=== PATIENT | male | born 1990 | race Caucasian/White ===

== ENCOUNTER 2024-07-29 11:42 | Inpatient (IN) | payer MEDICAID ==
[~2024-07-29] VITALS: Ht 190.5 cm; Wt 84.8 kg
[~2024-07-29 11:42] MED LIST: DEXT5TAB31 PO; LISD10CA PO
[2024-07-29] MEDS ORDERED: mag hydrox/Alum hydrox/simeth 30ml oral suspension PO PRN (13:30)
[2024-07-29] MEDS ORDERED: magnesium hydroxide 30ml (MOM) UD suspension PO PRN (13:30)
[2024-07-29] MEDS ORDERED: loperamide 2mg capsule PO PRN (13:30)
[2024-07-29] MEDS ORDERED: acetaminophen 325mg tablet PO PRN ×2 (13:30)
[2024-07-29] MEDS ORDERED: DEXT5CAP PO (13:45)
[2024-07-29] MEDS ORDERED: LISD40CA PO (13:45)
[2024-07-29] MEDS: diphenhydrAMINE 50 mg/ml inj IM ONE (15:14)
[2024-07-29] MEDS: haloperidol lactate 5mg/ml inj IM ONE (15:14)
[2024-07-29] MEDS: LORazepam 2 mg/ml vial IM ONE (15:15)
[2024-07-29 17:03] VITALS: BP 140/86; PULSE 90; RESP 16; TEMP 98.6; O2SAT 99
[2024-07-29 20:00] VITALS: RESP 16
[2024-07-30] MEDS: lisdexamfetamine dimesylate 10mg capsule PO SCH (07:16)
[2024-07-30 07:30] VITALS: BP 116/71; PULSE 61; RESP 16; TEMP 98; O2SAT 98
[2024-07-30] MEDS: NICOTINE POLACRILEX 2 MG LOZENGE BC PRN (18:10)
[2024-07-30 19:00] VITALS: RESP 18; O2SAT 96
[2024-07-30 20:00] VITALS: BP 106/60; PULSE 90; RESP 18; TEMP 98.7; O2SAT 96
[2024-07-30] MEDS: hydrOXYzine 25 MG tablet PO SCH (21:00)
[2024-07-30] MEDS: OLANZapine 5mg rapidly disint. tablet PO SCH (21:00)
[2024-07-31 07:17] VITALS: RESP 18; O2SAT 96
[2024-07-31 08:00] VITALS: BP 129/86; PULSE 94; RESP 14; TEMP 98.7; O2SAT 96
[2024-07-31] MEDS: BUPROPION HCL 150MG XL 24 HR 150 MG TAB PO SCH (08:00)
== END 2024-07-31 13:08 | disposition home or self-care (01) | DRG 758 ==
LOC: ADULT MH 13:12 → UNDOADMIN 13:26 → ADULT MH 13:26
PROVIDERS: ADMIT Psychiatry & Neurology Psychiatry; ATTEND Psychiatry & Neurology Psychiatry
PROC: GZHZZZZ Group Psychotherapy (ICD-10-PCS; principal; 2024-07-31)
DX: F90.2 Attention-deficit hyperactivity disorder, combined type (principal); R45.851 Suicidal ideations; F43.10 Post-traumatic stress disorder, unspecified; F12.10 Cannabis abuse, uncomplicated; F17.210 Nicotine dependence, cigarettes, uncomplicated; F20.9 Schizophrenia, unspecified; F84.0 Autistic disorder; Z79.899 Other long term (current) drug therapy
CPT/HCPCS: 36415; 80061; 84443; 87081; J1200; J1630; J2060

== ENCOUNTER 2024-10-20 17:18 | Emergency (ER) | payer MEDICAID ==
[~2024-10-20] VITALS: Ht 188 cm; Wt 78.7 kg
[~2024-10-20 17:18] MED LIST changes: -DEXT5TAB31 PO
[2024-10-20 18:24] LABS: BASOPHILS % (AUTO) 0.5 % (0-1); EOSINOPHILS # (AUTO) 0.1 X10'3 (0-0.9); EOSINOPHILS % (AUTO) 0.8 % (0-6); HEMATOCRIT 48.4 % (42.0-52.0); HEMOGLOBIN 15.8 g/dl (14.0-17.9); LYMPHOCYTES % (AUTO) 22.9 % (21-51); MEAN CORPUSCULAR HEMOGLOBIN 28.7 PG (27.0-31.0); MEAN CORPUSCULAR HGB CONC 32.6 g/dL (33.0-36.5); MEAN CORPUSCULAR VOLUME 88.1 FL (78-98); MEAN PLATELET VOLUME 7.3 FL (7.4-10.4); MONOCYTES # (AUTO) 0.8 X10'3 (0-0.9); MONOCYTES % (AUTO) 9.2 % (2-12); NEUTROPHILS # (AUTO) 5.7 X10'3 (1.8-7.7); NEUTROPHILS % (AUTO) 66.6 % (42-75); PLATELET COUNT 363 X10'3 (140-440); RED CELL DISTRIBUTION WIDTH 13.6 % (11.5-14.5); WHITE BLOOD COUNT 8.6 X10'3 (4.5-11.0)
[2024-10-20 18:35] LABS: BILIRUBIN,URINE SMALL (Neg); CLARITY,URINE CLEAR (Clear); COLOR,URINE YELLOW (Yellow); GLUCOSE, URINE NEGATIVE (Neg); KETONES,URINE NEGATIVE (Neg); LEUKOCYTE ESTERASE ,URINE NEGATIVE (Neg); NITRITES, URINE NEGATIVE (Neg); OCCULT BLOOD,URINE NEGATIVE (Neg); PROTEIN,URINE 100 mg/dl (Neg); UROBILINOGEN,URINE 0.2 E.U/dL (0.2-1.0)
[2024-10-20 18:37] LABS: ALBUMIN 4.6 G/DL (3.4-5.0); ANION GAP 8 (8-16); BLOOD UREA NITROGEN 16 MG/DL (7-18); BUN/CREATININE RATIO 16.2 (10.0-20.0); CALCIUM 9.9 MG/DL (8.5-10.1); CHLORIDE 104 MMOL/L (99-107); CREATININE 0.99 MG/DL (0.60-1.10); GLUCOSE 86 MG/DL (70-104); POTASSIUM 4.1 MMOL/L (3.5-5.1); SODIUM 143 MMOL/L (135-145); THYROID STIMULATING HORMONE 1.18 ulU/ml (0.34-4.50); TOTAL CARBON DIOXIDE 31.2 MMOL/L (24-32); eCRCL 117 ML/MIN; eGFR 87 ML/MIN
[2024-10-20 18:39] LABS: ETHANOL < 10 MG/DL (<10)
[2024-10-20 18:39] LABS: UA COLLECTION TYPE CLN CATCH MIDSTREAM
[2024-10-20 18:41] LABS: BACTERIA,URINE NONE SEEN /HPF (Neg); RBC,URINE 0-2 /HPF (0-2); SQUAMOUS EPITHELIAL CELL,UR NONE SEEN /LPF (FEW); URINE AMPHETAMINE SCREEN POSITIVE (Neg); URINE BARBITUATE SCREEN NEGATIVE (Neg); URINE BENZODIAZEPINES SCREEN NEGATIVE (Neg); URINE CANNABINOID SCREEN POSITIVE (Neg); URINE COCAINE SCREEN NEGATIVE (Neg); URINE METHADONE SCREEN NEGATIVE (Neg); URINE OPIATE SCREEN NEGATIVE (Neg); URINE PHENCYCLIDINE SCREEN NEGATIVE (Neg); WBC,URINE 0-4 /HPF (0-4)
[2024-10-20] MEDS ORDERED: LISD40CA PO (19:00)
[2024-10-20] MEDS: diazepam 5mg tablet PO ONE (19:19)
[2024-10-20] MEDS: diphenhydrAMINE 25mg capsule PO ONE (19:19)
[2024-10-20] MEDS: MIDAZolam 1mg/ml 10ml vial IM ONE (22:35)
[2024-10-20] MEDS: OLANZapine **IM** 10 mg inj. IM ONE (23:43)
[2024-10-21] MEDS ORDERED: lisdexamfetamine dimesylate 10mg capsule PO SCH (08:47)
[2024-10-21 10:24] VITALS: PULSE 70; O2SAT 100
[2024-10-21] MEDS: lisdexamfetamine dimesylate 10mg capsule PO SCH (10:24)
[2024-10-21 10:27] VITALS: BP 96/58; RESP 16; TEMP 98.6
== END 2024-10-21 10:44 | disposition home or self-care (01) ==
LOC: ER 17:18
DX: F32.A Depression, unspecified (principal); R45.851 Suicidal ideations; Z20.822 Contact with and (suspected) exposure to COVID-19
CPT/HCPCS: 36415; 80048; 80305; 80320; 81001; 84443; 85025; 87811; 96372; 99285; J2250; J3490; Q0163; A4565

== ENCOUNTER 2024-10-23 13:00 | Inpatient (IN) | payer MEDICAID ==
[~2024-10-23] VITALS: Ht 190.5 cm; Wt 81.2 kg
[~2024-10-23 13:00] MED LIST changes: +LISD40CA PO
[2024-10-23 15:30] VITALS: BP 115/81; PULSE 77; RESP 16; TEMP 99.5; O2SAT 99
[2024-10-23] MEDS ORDERED: magnesium hydroxide 30ml (MOM) UD suspension PO PRN (16:05)
[2024-10-23] MEDS ORDERED: loperamide 2mg capsule PO PRN (16:05)
[2024-10-23] MEDS ORDERED: acetaminophen 325mg tablet PO PRN ×2 (16:05)
[2024-10-23] MEDS ORDERED: mag hydrox/Alum hydrox/simeth 30ml oral suspension PO PRN (16:05)
[2024-10-23 16:39] VITALS: RESP 16; O2SAT 99
[2024-10-23] MEDS: NICOTINE POLACRILEX 2 MG LOZENGE BC PRN (16:52)
[2024-10-23 19:00] VITALS: RESP 18; O2SAT 98
[2024-10-23 20:55] VITALS: BP 124/72; PULSE 70; RESP 18; TEMP 98.9; O2SAT 98
[2024-10-23 20:58] VITALS: RESP 18; O2SAT 98
[2024-10-24 07:30] VITALS: BP 99/57; PULSE 68; RESP 15; TEMP 96.8; O2SAT 96
[2024-10-24] MEDS: atomoxetine 40 MG capsule PO SCH (08:00)
[2024-10-24] MEDS: nicotine 21mg patch - 24 hr TD SCH (08:00)
[2024-10-24] MEDS ORDERED: hydrOXYzine 25 MG tablet PO PRN (12:30)
[2024-10-24 19:27] VITALS: RESP 15; O2SAT 96
[2024-10-24 19:41] VITALS: BP 111/60; PULSE 66; RESP 20; TEMP 98.8; O2SAT 97
[2024-10-25 07:33] VITALS: BP 105/64; PULSE 89; RESP 17; TEMP 98.6; O2SAT 95
[2024-10-25 19:00] VITALS: RESP 16; O2SAT 99
[2024-10-25 20:00] VITALS: BP 132/78; PULSE 78; RESP 16; TEMP 98.6; O2SAT 99
[2024-10-26 07:23] VITALS: BP 107/67; PULSE 66; RESP 16; TEMP 97.9; O2SAT 98
[2024-10-26 08:21] VITALS: RESP 16; O2SAT 98
[2024-10-26 19:00] VITALS: RESP 16; O2SAT 98
[2024-10-26 20:00] VITALS: BP 111/79; PULSE 84; RESP 16; TEMP 98.8; O2SAT 98
[2024-10-27 07:00] VITALS: RESP 16; O2SAT 99
[2024-10-27 08:00] VITALS: BP 110/67; PULSE 60; RESP 16; TEMP 98.1; O2SAT 99
[2024-10-27 19:00] VITALS: RESP 16; O2SAT 97
[2024-10-27 20:00] VITALS: BP 117/72; PULSE 96; RESP 16; TEMP 98.6; O2SAT 97
[2024-10-28 07:00] VITALS: RESP 16; O2SAT 93
[2024-10-28 08:00] VITALS: BP 108/70; PULSE 69; RESP 16; TEMP 97.4; O2SAT 93
== END 2024-10-28 09:55 | disposition home or self-care (01) | DRG 754 ==
LOC: ADULT MH 13:00 → UNDOADMIN 13:00 → ADULT MH 15:30
PROVIDERS: ADMIT Psychiatry & Neurology Psychiatry; ATTEND Psychiatry & Neurology Psychiatry
PROC: GZHZZZZ Group Psychotherapy (ICD-10-PCS; principal; 2024-10-24)
PROC: GZ51ZZZ Individual Psychotherapy, Behavioral (ICD-10-PCS; 2024-10-24)
DX: F32.A Depression, unspecified (principal); R45.851 Suicidal ideations; Z91.148 Patient's other noncompliance with medication regimen for other reason; F90.2 Attention-deficit hyperactivity disorder, combined type; F12.10 Cannabis abuse, uncomplicated; F84.0 Autistic disorder; F20.9 Schizophrenia, unspecified; F42.9 Obsessive-compulsive disorder, unspecified; F15.90 Other stimulant use, unspecified, uncomplicated; F43.10 Post-traumatic stress disorder, unspecified; Z59.00 Homelessness unspecified
CPT/HCPCS: 87081

== ENCOUNTER 2024-12-25 17:40 | Emergency (ER) | payer MEDICAID ==
[~2024-12-25] VITALS: Ht 373.4 cm; Wt 81.0 kg
[~2024-12-25 17:40] MED LIST changes: -LISD10CA PO
[2024-12-25 17:48] VITALS: TEMP 98.8
[2024-12-25 18:33] LABS: BASOPHILS % (AUTO) 0.2 % (0-1); EOSINOPHILS # (AUTO) 0.1 X10'3 (0-0.9); EOSINOPHILS % (AUTO) 0.7 % (0-6); HEMATOCRIT 43.6 % (42.0-52.0); HEMOGLOBIN 14.8 g/dl (14.0-17.9); LYMPHOCYTES # (AUTO) 0.7 X10'3 (1.1-4.8); LYMPHOCYTES % (AUTO) 7.9 % (21-51); MEAN CORPUSCULAR HEMOGLOBIN 29.3 PG (27.0-31.0); MEAN CORPUSCULAR HGB CONC 33.9 g/dL (33.0-36.5); MEAN CORPUSCULAR VOLUME 86.3 FL (78-98); MEAN PLATELET VOLUME 7.4 FL (7.4-10.4); MONOCYTES # (AUTO) 0.6 X10'3 (0-0.9); MONOCYTES % (AUTO) 6.9 % (2-12); NEUTROPHILS # (AUTO) 7.5 X10'3 (1.8-7.7); NEUTROPHILS % (AUTO) 84.3 % (42-75); PLATELET COUNT 309 X10'3 (140-440); RED BLOOD COUNT 5.05 X10'6 (4.70-6.10); RED CELL DISTRIBUTION WIDTH 14.4 % (11.5-14.5); WHITE BLOOD COUNT 8.9 X10'3 (4.5-11.0)
[2024-12-25] MEDS: ziprasidone IM 20mg inj **IM only IM PRN (18:40)
--- NOTE | 2024-12-25 18:46 | Physician Documentation ---
History of Present Illness ~ Chief Complaint: Suicidal Ideation Stated Complaint: SI Time Seen by MD: 18:11 Primary Medical Doctor: NONE HPI This is a 34-year-old gentleman with a known history of psychiatric disorder, schizoaffective disorder, previous suicidality and depression, comes in with a suicidal and homicidal ideation. He hears voices. He wants to kill himself by climbing on top of the train and getting thrown off by the train. He actually attempted to do so over the last two days. He was not successful. They homicidal ideation does not have a particular target. He denies any somatic complaints. Obviously uses marijuana, denies any other drug use. Medication Reconciliation Allergies: Coded Allergies: No Known Allergies (Unverified , 10/20/24) Scheduled Lisdexamfetamine Dimesylate (Vyvanse), 1 CAP PO DAILY, (Reported) Past Medical History Patient History: Patient reports no known family medical history. Review of Systems ROS 10 point review of systems was performed and unless noted above in HPI is negative for acute process/complaint. Physical Exam Vital Signs: Temperature: 98.8, Heart Rate: 103, Respiratory Rate: 18, BP: 128/78, Pulse Oximetry: 96, Weight: 81.050 Oxygen Flow Rate: 0 Physical Exam Physical examination: GENERAL: Awake, alert, oriented, GCS 15, no apparent distress, non-toxic appearing, answers questions, follows commands appropriately. Obvious stigmata of homelessness noted, examined in bed 8. HEENT: Atraumatic, normocephalic, pupils equal, extraocular muscles intact Active gross movements, sclerae anicteric, mucus membranes moist, no stridor. NECK: Midline, no JVD CARDIOVASCULAR: Good skin perfusion without evidence of pallor, mottling. PULMONARY: Nonlabored, symmetric chest rise, no audible wheezing, no accessory muscle use, no respiratory distress, speaking in full sentences. GASTROINTESTINAL: Not distended. NEUROLOGIC: Lucid with normal mental status. Normal facial symmetry. Moves all extremities symmetrically and with purpose. No truncal ataxia. Speech is fluid without evidence of dysarthria or aphasia, no focal deficits appreciated. EXTREMITIES: Acute deformities Skin: warm, dry PSYCHIATRIC: Normal affect, normal insight, normal concentration. Focused exam: [] Progress Results/Orders Results/Orders Orders - AUBREY CORNEJO DO Ziprasidone Im Inj. (Geodon ImIm Onl (12/25/24 18:25) Medications Received in ER Medications (Trade) Dose Ordered Sig/Nestor Route PRN Reason Start Time Stop Time Status Last Admin Dose Admin (Geodon IMIM ONLY) 20 mg ONCE PRN IM agitation 12/25/24 18:25 12/25/24 18:40 20 MG Vital Signs 12/25/24 17:48 Temp 98.8 Pulse 103 Resp 18 B/P (MAP) 128/78 Pulse Ox 96 O2 Flow Rate 0 Laboratory Tests Test 12/25/24 18:10 White Blood Count 8.9 Red Blood Count 5.05 Hemoglobin 14.8 Hematocrit 43.6 Mean Corpuscular Volume 86.3 Mean Corpuscular Hemoglobin 29.3 Mean Corpuscular Hemoglobin Concent 33.9 Red Cell Distribution Width 14.4 Platelet Count 309 Mean Platelet Volume 7.4 Neutrophils (%) (Auto) 84.3 H Lymphocytes (%) (Auto) 7.9 L Monocytes (%) (Auto) 6.9 Eosinophils (%) (Auto) 0.7 Basophils (%) (Auto) 0.2 Neutrophils # (Auto) 7.5 Lymphocytes # (Auto) 0.7 L Monocytes # (Auto) 0.6 Eosinophils # (Auto) 0.1 Basophils # (Auto) 0.0 CBC Comment Sodium Level 140 Potassium Level 3.8 Chloride Level 104 Carbon Dioxide Level 30.8 Anion Gap 5 L Blood Urea Nitrogen 11 Creatinine 1.07 Estimated GFR/1.73 m2 79 BUN/Creatinine Ratio 10.3 Glucose Level 106 H Calcium Level 9.3 Albumin 3.6 Thyroid Stimulating Hormone (TSH) 0.40 Chemistry Comments Ethyl Alcohol Level < 10 Medical Decision Making Findings Facility Status: ED Holds, [facility] process The plan was discussed with the patient, who demonstrates clear understanding of the plan and is in agreement with the plan unless otherwise noted in the chart. All questions have been answered, all concerns were addressed unless otherwise documented. I was available throughout their ED stay for frequent reassessment and questions . Differential Diagnoses (considered and possible or likely): [Suicidal ideation, homicidal ideation, auditory hallucinations, acute drug toxidrome, less likely to represent thyrotoxicosis, dehydration, electrolyte derangement or any other acute somatic process as he has no somatic complaints.] ??Differential Diagnoses (considered and unlikely, not requiring evaluation currently): [See above] MDM Data Please see [facility] for the following: Independent Historians and external Records Review. Historian: [Patient] Independent Historians: ?[Record review. Most recent visit to our facility was December 23 for depression] Medication Management: [Reviewed medication list] Social History and determinants: [Reviewed] Please see the body of the note for the following: Any independent interpretations of ECG, imaging studies. All vitals signs/haemodynamics, ordered tests were independently reviewed and interpreted by myself. Nursing triage complaint and vitals reviewed, additional nursing notes were reviewed as available and I agree unless otherwise noted or documented in contradiction in the chart Vital Signs: Independently reviewed Labs: Independently interpreted Imaging: Independently interpreted Old Medical Records: Independently reviewed, see HPI for relevant summary and in formation Pulse Oximetry: [100%] interpreted as [normal on room air] by me [Enginehouse Brakeman: [Regular Rate, Regular rhythm, no ectopy, NSR] reviewed and interpreted by me] Additionally notably showing: [Hemodynamically stable, no clinical deterioration. Laboratory workup was unremarkable.] Tests considered but not ordered include: [Imaging does not appear to be necessary in the setting] Social Determinants of Health Impact: Patient was evaluated in [facility], or [facility] [place] healthcare due to below par ratio of patient to medical providers. [] Comorbid Conditions Impacting Present Evaluation and Care/Treatment: [Poorly treated psychiatric disease, homelessness, drug abuse I] Management Discussions with other Healthcare Providers: [Transfer orders for [facility]: At this time there is no evidence of an emergent medical condition that would preclude (admission/transfer) to a psychiatric unit via [facility] protocol for further psychiatric, as well as medical evaluation and treatment. At this time I have no reason to believe that transfer via [facility] protocol would have serious medical compromise in the patient's health.] Treatment and Disposition Medication Management (Given or considered): []. See EMR for details Consideration for Hospitalization/Escalation/Deescalation of Care: Admission for observation has been considered, [however the patient is able to tolerate p.o., their symptoms are controlled, they are able to rely on oral medications, and their chief complaint/diagnosis can be managed on outpatient basis.] ?ED Course:? The patient is medically cleared for psychiatric evaluation. ?Shared decision making:?[] Code status:?FULL Please see the full Electronic Medical Record for full details of nursing documentation, medications list, other records of complete past medical history and conditions, vital signs, laboratory studies, and any radiologic study interpretations by radiologists. Portions of this note were completed using [employer] dictation software and as a result there may exist minor errors in spelling. I have reviewed elements of past family and social history and agree as included in note. Departure Disposition: 30 STILL A PATIENT Impression: Primary Impression: Suicidal ideations Additional Impressions: Homicidal ideation Auditory hallucinations Condition: Stable Discharge Instructions: Psychosis Referrals: NO PRIMARY CARE PROVIDER (PCP) Signature Scribe Signature: No scribe Attestation: This note accurately reflects clinical decisions, work performed by myself, DO CHANTAL Yusuf NICHOLAS M DO December 25, 2024 18:46
[2024-12-25 19:04] LABS: ALBUMIN 3.6 G/DL (3.4-5.0); ANION GAP 5 (8-16); BLOOD UREA NITROGEN 11 MG/DL (7-18); BUN/CREATININE RATIO 10.3 (10.0-20.0); CALCIUM 9.3 MG/DL (8.5-10.1); CHLORIDE 104 MMOL/L (99-107); CREATININE 1.07 MG/DL (0.60-1.10); ETHANOL < 10 MG/DL (<10); GLUCOSE 106 MG/DL (70-104); POTASSIUM 3.8 MMOL/L (3.5-5.1); SODIUM 140 MMOL/L (135-145); TOTAL CARBON DIOXIDE 30.8 MMOL/L (24-32); eCRCL 112 ML/MIN; eGFR 79 ML/MIN
[2024-12-26] MEDS: lisdexamfetamine dimesylate 10mg capsule PO SCH (08:00)
[2024-12-26 12:19] LABS: BILIRUBIN,URINE SMALL (Neg); CLARITY,URINE CLEAR (Clear); GLUCOSE, URINE NEGATIVE (Neg); KETONES,URINE TRACE mg/dl (Neg); LEUKOCYTE ESTERASE ,URINE NEGATIVE (Neg); NITRITES, URINE NEGATIVE (Neg); OCCULT BLOOD,URINE NEGATIVE (Neg); PROTEIN,URINE TRACE mg/dl (Neg); UROBILINOGEN,URINE 0.2 E.U/dL (0.2-1.0)
[2024-12-26 12:24] LABS: COLOR,URINE DARK YELLOW (Yellow); UA COLLECTION TYPE NON-SPECIFIED
[2024-12-26 12:25] LABS: BACTERIA,URINE FEW /HPF (Neg); RBC,URINE 0-2 /HPF (0-2); WBC,URINE 0-4 /HPF (0-4)
[2024-12-26 12:26] LABS: SQUAMOUS EPITHELIAL CELL,UR FEW /LPF (FEW)
[2024-12-26 12:34] LABS: URINE AMPHETAMINE SCREEN POSITIVE (Neg); URINE BARBITUATE SCREEN NEGATIVE (Neg); URINE BENZODIAZEPINES SCREEN NEGATIVE (Neg); URINE CANNABINOID SCREEN POSITIVE (Neg); URINE COCAINE SCREEN NEGATIVE (Neg); URINE METHADONE SCREEN NEGATIVE (Neg); URINE OPIATE SCREEN NEGATIVE (Neg); URINE PHENCYCLIDINE SCREEN NEGATIVE (Neg)
[2024-12-26 16:58] LABS: ALANINE AMINOTRANSFERASE 34 U/L (12-78); ALBUMIN/GLOBULIN RATIO 1.1 (1.1-1.5); ALKALINE PHOSPHATASE 71 IU/L (46-116); ASPARTATE AMINO TRANSFERASE 27 U/L (10-37); BILIRUBIN,DIRECT 0.1 MG/DL (0-0.3); BILIRUBIN,TOTAL 0.6 MG/DL (0.1-1.0); TOTAL PROTEIN 6.9 G/DL (6.4-8.2)
[2024-12-26 19:06] VITALS: BP 117/76; PULSE 68; RESP 12; O2SAT 99
[2024-12-26] MEDS ORDERED: ziprasidone IM 20mg inj **IM only IM ONE (19:10)
== END 2024-12-26 19:49 ==
LOC: ER 17:40
DX: R45.851 Suicidal ideations (principal); R45.850 Homicidal ideations; F25.9 Schizoaffective disorder, unspecified; Z79.899 Other long term (current) drug therapy; Z20.822 Contact with and (suspected) exposure to COVID-19
CPT/HCPCS: 36415; 80048; 80076; 80305; 80320; 81001; 84443; 85025; 87811; 96372; 99285; J3486; 99284